=== PATIENT | female | born 1950 | race Caucasian/White ===

== ENCOUNTER → 2016-10-11 | Outpatient (CLI) | payer OTHER | LOC: FIMAGING 09:11 | PROVIDERS: ATTEND Internal Medicine Endocrinology, Diabetes & Metabolism | DX: Z13.820 Encounter for screening for osteoporosis (principal); M85.80 Other specified disorders of bone density and structure, unspecified site; Z78.0 Asymptomatic menopausal state; Z79.890 Hormone replacement therapy | CPT/HCPCS: G0202 ==

== ENCOUNTER → 2016-10-31 | Outpatient (CLI) | payer OTHER | LOC: FIMAGING 15:12 | DX: N60.02 Solitary cyst of left breast (principal) ==

== ENCOUNTER → 2017-03-29 | Outpatient (CLI) | payer OTHER | LOC: BMCIMAGING 10:36 | PROVIDERS: ATTEND Podiatrist Foot & Ankle Surgery | DX: M20.11 Hallux valgus (acquired), right foot (principal); M21.611 Bunion of right foot; M19.071 Primary osteoarthritis, right ankle and foot ==

== ENCOUNTER 2017-07-10 21:34 | Emergency (ER) | payer OTHER ==
[2017-07-10 21:45] VITALS: BP 179/111; PULSE 79; RESP 16; TEMP 97.7; O2SAT 93
--- NOTE | 2017-07-10 22:18 | EDPHY ---
General - History Smoking Status: Former smoker Narrative: CHIEF COMPLAINT: Right knee pain HISTORY OF PRESENT ILLNESS: Patient complains of right knee pain. This happened acutely this evening. She just finished going up her stairs and was walking on a rug. She slipped, striking her right knee on the wall. Sudden onset of severe pain in the knee. Swollen and difficulty ambulating due to this. No numbness or tingling distally. No fall or head strike. No chest, back or abdominal pain. No injury to the left leg. She has no weakness of the right ankle or foot. No bony tenderness of the right ankle or foot. No other associated complaints or modifying factors. ESTABLISHED ORTHOPEDIST: Dr. Gerardo REVIEW OF SYSTEMS: Ten systems reviewed and are negative unless otherwise noted in the HPI PAST MEDICAL HISTORY: Previous left patellar fracture PAST SURGICAL HISTORY: Left patellar ORIF SOCIAL HISTORY: Nonsmoker. FAMILY HISTORY: Noncontributory EXAMINATION General Appearance: Alert, no distress Cardiovascular: Pulses normal throughout. Symmetric DP pulses 2+. Symmetric PT pulses 2+. Brisk cap refill Neurological: A&O, normal light sensation of the top of the right foot. Strength symmetric in the ankles. Patellar reflexes not tested due to deformity and knee. Skin: Warm and dry, no rash. No petechiae. No purpura. No laceration or puncture. There is edema/effusion over the right knee Extremities: Significant tenderness of the right knee over the patella. There is no tenderness of the femoral condyles. No tenderness of the proximal tibia. Range of motion not tested due to deformity prior to the x-ray. Post x-ray examination I did slightly flex the knee and she was able to extend minimally. I did witness the patellar tendon pulling on the tibial tuberosity. Neuro intact distal to this injury. Psychiatric: Mood and affect normal DIFFERENTIAL DIAGNOSES: Including but not limited to patellar fracture, sprain, strain, femur fracture, tibial fracture MDM: 10:05 p.m. Acute right knee pain with blunt trauma this evening with deformity of the knee suggesting patellar fracture. X-ray is pending. She is neuro intact distally. Range of motion not tested prior to the x-ray due to this suspected diagnosis. 10:20 p.m. X-ray reveals a comminuted and significantly distracted patellar fracture. There is no evidence of patellar tendon rupture. There is no abnormality distal to this. She is neuro intact. She is resting comfortably in no acute distress with pain tolerated well. Patient has experience with this with previous left patellar fracture status post ORIF. She would like to contact her previous surgeon for this. She will be placed in a straight leg immobilizer. She has crutches at home. Assisted to the vehicle so that she may remain nonweightbearing. Provide a short course of pain medication for this. I will also provide the on-call orthopedist for her should she change her mind. 10:40 p.m. Patient has straight leg immobilizer in place. She is neuro intact distally. She will be discharged home in stable condition with plan as above. ED Precautions: Worsening pain. Erythema, edema, cyanosis, pallor, paresthesia or anesthesia. (Moise Kerr) PHYSICIAN DOCUMENTATION: The patient was evaluated and managed by the Physician Die Tester. My co- signature indicates that I have reviewed this chart and I agree with the findings and plan of care as documented. I am the secondary supervising physician. (Teagan Monaco) - Diagnostics Imaging Results: Imaging Impressions Knee X-Ray 07/10/17 21:52 Impression: Comminuted displaced patellar fractures. - Objective Vital Signs: Initial Vital Signs Temperature (C) 36.5 C 07/10/17 21:41 Heart Rate 79 07/10/17 21:41 Respiratory Rate 16 07/10/17 21:41 Blood Pressure 179/111 H 07/10/17 21:41 O2 Sat (%) 93 07/10/17 21:41 O2 Delivery Mode Room Air Allergies/Adverse Reactions: codeine [Codeine] Allergy (Verified 07/10/17 21:45) NAUSEA Home Medications: Medication Instructions Recorded Aspirin EC 81 mg (*) 81 mg PO DAILY06 02/26/16 Estradiol 1 mg PO DAILY06 02/26/16 Lisinopril 10 mg PO DAILY06 02/26/16 VITAMIN D PO TUTHSA 02/26/16 medroxyPROGESTERone 5 mg PO DAILY06 02/26/16 Hydrocodone/APAP 5/325 [[place] 1 - 2 tab PO Q4H PRN #19 tab 07/10/17 5/325 (*)] Ondansetron Odt [Zofran Odt 4 mg 4 mg PO Q6 PRN #12 tab 07/10/17 (*)] Medications Given: Discontinued Medications Hydrocodone Bitart/Acetaminophen ([place] 5/325mg Prepack#6) 1 btl HELENA SANTILLANNOGwendolyn ONE Stop: 07/10/17 22:24 Last Admin: 07/10/17 22:44 Dose: 1 btl Departure - Departure Disposition: Home, Routine, Self-Care Clinical Impression: Patellar fracture Condition: Good Instructions: Hydrocodone/Acetaminophen (By mouth), Patellar Fracture (ED) Additional Instructions: 1. Strict nonweightbearing until seen by Orthopedics for definitive care 2. Knee immobilizer as applied here 3. Crutches at home 4. Kuzc-[id number]-[id number] anti-inflammatories as needed 5. Pain medication as prescribed 6. Contact established orthopedist or the orthopedist on-call as provided Referrals: Nathanael Salamanca MD [Primary Care Provider] - As per Instructions Donna Gerardo MD [Medical Doctor] - As per Instructions Evangelista Sloan MD [Medical Doctor] - As per Instructions Prescriptions: Hydrocodone/APAP 5/325 [[place] 5/325 (*)] 1 - 2 tab PO Q4H PRN #19 tab PRN Reason: Pain, Moderate Ondansetron Odt [Zofran Odt 4 mg (*)] 4 mg PO Q6 PRN #12 tab PRN Reason: Nausea/Vomiting, Use 1st
[2017-07-10] MEDS ORDERED: HYDROCOD/APAP 5/325 PREPACK#6 BTL TAKEHOME ONE (22:23)
== END 2017-07-10 23:02 | disposition home or self-care (01) ==
DX: S82.041A Displaced comminuted fracture of right patella, initial encounter for closed fracture (principal); Z87.891 Personal history of nicotine dependence; Z79.82 Long term (current) use of aspirin; W18.40XA Slipping, tripping and stumbling without falling, unspecified, initial encounter; Y93.01 Activity, walking, marching and hiking
CPT/HCPCS: 73564; 99284; L1830

== ENCOUNTER → 2017-11-14 | Outpatient (CLI) | payer OTHER | LOC: FIMAGING 13:31 | PROVIDERS: ATTEND Obstetrics & Gynecology | DX: Z12.31 Encounter for screening mammogram for malignant neoplasm of breast (principal) ==

== ENCOUNTER → 2017-12-06 | Outpatient (CLI) | payer OTHER | LOC: FIMAGING 12:56 | PROVIDERS: ATTEND Obstetrics & Gynecology | DX: N60.01 Solitary cyst of right breast (principal) ==

== ENCOUNTER 2018-09-05 17:30 | Inpatient (IN) | payer OTHER ==
[~2018-09-05 17:30] MED LIST: GADOBUTROL 10 ML VIAL IVP ONE
--- NOTE | 2018-09-05 18:15 | EDPHY ---
H & P Stated Complaint: Sent by PCP for blockage of "left neck artery". Time Seen by Provider: 09/05/18 18:02 HPI/ROS: CHIEF COMPLAINT: CVA HISTORY OF PRESENT ILLNESS: Patient is a 67-year-old female who has been complaining of intermittent headaches for the last week. She states that it began about a week ago when she had a GI bug that several of her family also had. Her symptoms seem to improve but headache again returned on Monday. She notices it particularly when she lays down at night. She feels better when she is upright and during the day. No fever. No focal deficits or weakness appreciated. No slurred speech. No vision changes. She has been able to ambulate without difficulty. She presented to her primary Dr. Nathanael Salamanca today who ordered an MRI and MRA. 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 She was called and told to come to the emergency department. She states that she does not have a headache currently and has no focal weakness or deficits. Severity: Moderate Modifying factors: Somewhat positional REVIEW OF SYSTEMS: Constitutional: denies: chills, fever, recent illness, recent injury EENTM: denies: blurred vision, double vision, nose congestion Respiratory: denies: cough, shortness of breath Cardiac: denies: chest pain, irregular heart rate, lightheadedness, palpitations Gastrointestinal/Abdominal: denies: abdominal pain, diarrhea, nausea, vomiting, blood streaked stools Genitourinary: denies: dysuria, frequency, hematuria, pain Musculoskeletal: denies: joint pain, muscle pain Skin: denies: lesions, rash, jaundice, bruising Neurological: See HPI denies: numbness, paresthesia, tingling, dizziness, weakness Hematologic/Lymphatic: denies: blood clots, easy bleeding, easy bruising Immunologic/allergic: denies: HIV/AIDS, transplant 10 systems reviewed and negative except as noted EXAM: GENERAL: Well-appearing, well-nourished and in no acute distress. HEAD: Atraumatic, normocephalic. EYES: Pupils equal round and reactive to light, extraocular movements intact, sclera anicteric, conjunctiva are normal. ENT: TMs normal, nares patent, oropharynx clear without exudates. Moist mucous membranes. NECK: Normal range of motion, supple without lymphadenopathy or JVD. LUNGS: Breath sounds clear to auscultation bilaterally and equal. No wheezes rales or rhonchi. HEART: Regular rate and rhythm without murmurs, rubs or gallops. ABDOMEN: Soft, nontender, normoactive bowel sounds. No guarding, no rebound. No masses appreciated. BACK: No CVA tenderness, no spinal tenderness, step-offs or deformities EXTREMITIES: Normal range of motion, no pitting or edema. No clubbing or cyanosis. NEUROLOGICAL: Cranial nerves II through XII grossly intact. Normal speech, normal gait. 5/5 strength, normal movement in all extremities, normal sensation , normal reflexes, normal cerebellar exam. PSYCH: Normal mood, normal affect. SKIN: Warm, dry, normal turgor, no visible rashes or lesions. Source: Patient Exam Limitations: No limitations - Personal History Current Tetanus Diphtheria and Acellular Pertussis (TDAP): Yes Tetanus Vaccine Date: 2010 - Medical/Surgical History Hx Asthma: No Hx Chronic Respiratory Disease: No Hx Diabetes: No Hx Cardiac Disease: No Hx Renal Disease: No Hx Cirrhosis: No Hx Alcoholism: No Hx HIV/AIDS: No Hx Splenectomy or Spleen Trauma: No Other PMH: HTN. Osteopenia. - Family History Significant Family History: No pertinent family hx - Social History Smoking Status: Former smoker Alcohol Use: Sober Drug Use: None Constitutional: Initial Vital Signs Temperature (C) 36.3 C 09/05/18 17:43 Heart Rate 84 09/05/18 17:43 Respiratory Rate 16 09/05/18 17:43 Blood Pressure 185/127 H 09/05/18 17:43 O2 Sat (%) 96 09/05/18 17:43 O2 Delivery Mode Room Air Allergies/Adverse Reactions: codeine [Codeine] Allergy (Verified 07/10/17 21:45) NAUSEA Home Medications: Medication Instructions Recorded Lisinopril [Zestril 40 mg (*)] 40 mg PO DAILY 02/26/16 Apixaban [Eliquis] 10 mg PO BID 30 Days tab 09/07/18 Medical Decision Making - Diagnostics EKG Interpretation: An EKG obtained and was read and documented in trace view. Please see trace view for full reading and report. Sinus rhythm, no acute ischemic changes Imaging: Discussed imaging studies w/ manager call center Radiologist ED Course/Re-evaluation: 6:15 p.m. I discussed the case at length with Dr. King from [facility]. He recommends CT angio to evaluate for possible dissection and collateral circulation. He recommends permissive hypertension and admission for neuro checks possibly on heparin bolus if she has a dissection. We will call him back when the CT angio was done. The 8:30 p.m. I had a long discussion about the CT results. Patient agrees to admission. She is currently asymptomatic. No headache. No weakness slurred speech or cranial nerve deficits. Zackary Huang feels that this is likely a stump embolus from the clot. She has good collateral circulation. They recommend heparin drip and labetalol to control blood pressure with a goal blood pressure of 180 systolic. They do not want to go below 120 systolic or over 220 systolic. Differential Diagnosis: Partial list of the Differential diagnosis considered include but were not limited to; CVA, dissection and although unlikely based on the history and physical exam, I also considered ridge, tumor, seizure, infection. - Data Points Laboratory Results: Laboratory Results 09/05/18 18:20 09/05/18 18:20 Medications Given: Discontinued Medications Acetaminophen (Tylenol) 650 mg PO Q4HRS PRN PRN Reason: Pain, Mild/Fever, Can Take PO Stop: 03/04/19 22:04 Last Admin: 09/05/18 22:54 Dose: 650 mg Hydrocodone Bitart/Acetaminophen ([place] 5/325) 1 - 2 tab PO Q4HRS PRN PRN Reason: Pain, Moderate Able to Take PO Stop: 09/15/18 22:04 Last Admin: 09/06/18 04:22 Dose: 1 tab Apixaban (Eliquis) 10 mg PO BID LORENA Stop: 03/06/19 12:14 Last Admin: 09/07/18 12:41 Dose: 10 mg Sodium Chloride (Ns) 1,000 mls @ 0 mls/hr IV ONCE ONE; Wide Open PRN Reason: Protocol Stop: 09/05/18 18:19 Last Admin: 09/05/18 18:24 Dose: 1,000 mls Heparin Sodium (Porcine) (Heparin 50 Units/Ml (Premix)) 500 mls @ 0 mls/hr IV EDNOW ONE; Per Protocol PRN Reason: Protocol Stop: 09/05/18 20:42 Last Admin: 09/05/18 21:06 Dose: 500 mls Heparin Sodium (Porcine) (Heparin 50 Units/Ml (Premix)) 500 mls @ 0 mls/hr IV CONT LORENA; Per Protocol PRN Reason: Protocol Stop: 03/04/19 23:14 Last Admin: 09/06/18 16:21 Dose: 500 mls Labetalol HCl (Trandate Injection) 10 mg IVP EDNOW ONE Stop: 09/05/18 20:19 Last Admin: 09/05/18 20:48 Dose: 10 mg Labetalol HCl (Trandate Injection) 10 mg IVP EDNOW ONE Stop: 09/05/18 21:16 Last Admin: 09/05/18 21:18 Dose: 10 mg Lisinopril (Zestril) 40 mg PO DAILY LORENA Stop: 03/06/19 12:14 Last Admin: 09/07/18 12:41 Dose: 40 mg Departure - Departure Disposition: [facility] Acute Clinical Impression: CVA (cerebral vascular accident) Qualifiers: CVA mechanism: unspecified Qualified Code(s): I63.9 - Cerebral infarction, unspecified Condition: Fair
[2018-09-05] MEDS ORDERED: NS 1,000 ML IV ONE (18:18)
[2018-09-05] MEDS ORDERED: IOPAMIDOL (ISOVUE 370) 100 ML BTL IV ONE (18:24)
[2018-09-05 18:36] LABS: PLATELET COUNT 234 10^3/uL (150-400)
--- NOTE | 2018-09-05 18:38 | PDCONSULT ---
Edger Machine Helper Note: [facility] Note Demographics Consult Type: Phone Only First Name: Arianne Last Name: Kary Date of : 1950 Age: 67 Gender: Female Referring Provider: Dr Doherty Time of initial page (Gardena ): 09/05/2018 18:10 Time of return call (Gardena ): 09/05/2018 18:11 HPI Additional History (Free Text): 67 year old woman with history of stomach flu about 1 week ago . She has had headaches that have been fluctuating over the last one week she was sent for an outpatient MRI and MRA today that demonstrates a left internal carotid artery occlusion and a 13 mm infarct of the left parietal lobe is not have a significant medical history otherwise and is not on anticoagulants for anti thrombotic agents at Baseline. Exam Data Other Imaging: MRI/MRA reports and [facility] Assessment: Left carotid occlusion, etiology not certain. Possible dissection, perhaps from recent vomiting with GI illness. Headache could be from distention of collaterals. Would treat as dissection and treat with heparin (without bolus) to prevent stump emboli Plan Lytic/Intervention: NOT IV or IA candidate Labs: HgbA1c, Lipid Panel Imaging: CTA Head and Neck STAT, Please call me back with results NATHAN if there are signs of occlusion or dissection Medication: anticoagulation with heparin gtt Other: LDL goal less than 70, permissive HTN, telemetry monitoring, I have discussed my recommendations with the referring provider Additional Recommendations: SBP goal > 120 Frequent neurochecks IVF to maintain euvolemia If dissection is found, would recommend anticoagulation for the next three months with repeat CTA to re-eval occlusion for stability or recanalization to guide further treatment (anticoagulation vs aspirin therapy) Disposition: admit Logistics Provider Location: [place] Patient Location: [facility]
--- NOTE | 2018-09-05 18:56 | CPEKG ---
Test Reason : OPEN Blood Pressure : / mmHG Vent. Rate : 061 BPM Atrial Rate : 061 BPM P-R Int : 135 ms QRS Dur : 096 ms QT Int : 441 ms P-R-T Axes : 059 038 013 degrees QTc Int : 445 ms Sinus rhythm Probable left atrial enlargement Confirmed by Rell Doherty ([id number]) on 09/05/2018 6:55:53 PM Referred By: LAURI COLEMAN Confirmed By:Rell Doherty
[2018-09-05 19:46] LABS: INR 1.05 (0.83-1.16); PROTIME(PATIENT) 13.9 SEC (12.0-15.0)
[2018-09-05] MEDS ORDERED: LABETALOL HCL 5 MG/ML 20 ML MDV IVP ONE ×2 (20:18→21:15)
[2018-09-05] MEDS ORDERED: HEPARIN/DEXTROSE 500 ML IV ONE (20:41)
[2018-09-05] MEDS ORDERED: HYDROmorphONE/DILAUDID 1 MG/ML INJ IVP PRN (22:05)
[2018-09-05] MEDS ORDERED: ACETAMINOPHEN 325 MG TAB PO PRN (22:05)
[2018-09-05] MEDS ORDERED: PROMETHAZINE HCL 25 MG/ML INJ IVP PRN (22:05)
[2018-09-05] MEDS ORDERED: ONDANSETRON 4 MG/2 ML VIAL IVP PRN (22:05)
[2018-09-05] MEDS ORDERED: ONDANSETRON DISINTEGRATING 4 MG TAB PO PRN (22:05)
[2018-09-05] MEDS ORDERED: oxyCODONE IR 5 MG TAB PO PRN (22:05)
[2018-09-05] MEDS ORDERED: TEMAZEPAM 15 MG CAP PO PRN (22:05)
[2018-09-05] MEDS ORDERED: niCARdipine/NACL 200 ML IV SCH (22:30)
[2018-09-05] MEDS ORDERED: HEPARIN 10,000 UNIT/10 ML MDV (1,000 UNIT/ML) IVP PRN (23:03)
--- NOTE | 2018-09-05 23:07 | PDGENHP ---
History and Physical - Chief Complaint headache - History of Present Illness Patient is a 67 yo F with limited PMH who presents from her PCPs office with new diagnosis of CVA. Patient had been having headache for the last week following a GI illness. On Monday she felt so poorly that she felt as if she couldn't walk. She notes it was hard to tell if she couldn't walk because of weakness or dizziness, but at any rate, she attributed it to the GI illness and did not seek care. The GI sxs improved, however her headache continued and she ultimately followed up with her PCP for this. PCP ordered MRI/MRA brain for further evaluation and found that she had evidence of a left parietal infarct as well as a completely occluded left internal carotid. She was sent to ER for this. At the time of my evaluation her MORTON has resolved, she denies any numbness , weakness, changes in vision or hearing, changes in speech or thinking. Headache is not currently present. She is tearful and concerned regarding this diagnosis but otherwise feels well. History Information - Allergies/Home Medication List Allergies/Adverse Reactions: codeine [Codeine] Allergy (Verified 07/10/17 21:45) NAUSEA Home Medications: Estradiol [Estradiol 1 MG (*)] 1 mg PO DAILY 02/26/16 [Last Taken 09/05/18] Herbals/Supplements -Info Only 1 ea PO DAILY 02/26/16 [Last Taken 09/05/18] Lisinopril [Zestril 40 mg (*)] 40 mg PO DAILY 02/26/16 [Last Taken 09/05/18] medroxyPROGESTERone ACETATE [Provera 5 mg] 5 mg PO DAILY 02/26/16 [Last Taken ] Ibuprofen [Motrin (*)] 600 mg PO Q6H PRN 09/05/18 [Last Taken 08/31/18] I have personally reviewed and updated: family history, medical history, social history, surgical history - Past Medical History hypertension Additional medical history: osteopenia - Surgical History Additional surgical history: 2 knee surgeries. arm surgery - Family History Positive for: father with history of CAD younger than 55 (3 MO's in his 50s) - Social History Smoking Status: Current some day smoker Alcohol Use: Sober Drug Use: None Additional social history: Review of Systems Review of Systems: ROS: 10pt was reviewed & negative except for what was stated in HPI & below Physical Exam Physical Exam: Temp Pulse Resp BP Pulse Ox 36.3 C 56 L 18 181/90 H 93 09/05/18 17:43 09/05/18 21:22 09/05/18 21:22 09/05/18 21:22 09/05/18 21:22 Constitutional: no apparent distress, appears nourished Eyes: PERRL, anicteric sclera Ears, Nose, Mouth, Throat: moist mucous membranes, hearing normal Cardiovascular: regular rate and rhythym, no murmur, rub, or gallop, No edema Respiratory: no respiratory distress, no rales or rhonchi Gastrointestinal: normoactive bowel sounds, soft, non-tender abdomen Genitourinary: no bladder tenderness Skin: warm, normal color Musculoskeletal: full muscle strength, no muscle tenderness Neurologic: AAOx3, CN II-XII Intact, No weakness, No numbness Psychiatric: interacting appropriately, not anxious, not encephalopathic Lab Data & Imaging Review 09/05/18 18:20 09/05/18 18:20 WBC 8.61 10^3/uL (3.80-9.50) 09/05/18 18:20 RBC 5.10 10^6/uL (4.18-5.33) 09/05/18 18:20 Hgb 16.5 g/dL (12.6-16.3) H 09/05/18 18:20 Hct 47.9 % (38.0-47.0) H 09/05/18 18:20 MCV 93.9 fL (81.5-99.8) 09/05/18 18:20 MCH 32.4 pg (27.9-34.1) 09/05/18 18:20 MCHC 34.4 g/dL (32.4-36.7) 09/05/18 18:20 RDW 13.2 % (11.5-15.2) 09/05/18 18:20 Plt Count 234 10^3/uL (150-400) 09/05/18 18:20 MPV 10.4 fL (8.7-11.7) 09/05/18 18:20 Neut % (Auto) 62.3 % (39.3-74.2) 09/05/18 18:20 Lymph % (Auto) 26.0 % (15.0-45.0) 09/05/18 18:20 [place] % (Auto) 10.1 % (4.5-13.0) 09/05/18 18:20 Eos % (Auto) 0.8 % (0.6-7.6) 09/05/18 18:20 Baso % (Auto) 0.5 % (0.3-1.7) 09/05/18 18:20 Nucleat RBC Rel Count 0.0 % (0.0-0.2) 09/05/18 18:20 Absolute Neuts (auto) 5.36 10^3/uL (1.70-6.50) 09/05/18 18:20 Absolute Lymphs (auto) 2.24 10^3/uL (1.00-3.00) 09/05/18 18:20 Absolute Monos (auto) 0.87 10^3/uL (0.30-0.80) H 09/05/18 18:20 Absolute Eos (auto) 0.07 10^3/uL (0.03-0.40) 09/05/18 18:20 Absolute Basos (auto) 0.04 10^3/uL (0.02-0.10) 09/05/18 18:20 Absolute Nucleated RBC 0.00 10^3/uL (0-0.01) 09/05/18 18:20 Immature Gran % 0.3 % (0.0-1.1) 09/05/18 18:20 Immature Gran # 0.03 10^3/uL (0.00-0.10) 09/05/18 18:20 PT 13.9 SEC (12.0-15.0) 09/05/18 19:08 INR 1.05 (0.83-1.16) 09/05/18 19:08 Sodium 139 mEq/L (135-145) 09/05/18 18:20 Potassium 4.0 mEq/L (3.5-5.2) 09/05/18 18:20 Chloride 107 mEq/L (97-110) 09/05/18 18:20 Carbon Dioxide 22 mEq/l (22-31) 09/05/18 18:20 Anion Gap 10 mEq/L (6-14) 09/05/18 18:20 BUN 16 mg/dL (7-23) 09/05/18 18:20 Creatinine 0.8 mg/dL (0.6-1.0) 09/05/18 18:20 Estimated GFR > 60 09/05/18 18:20 Glucose 112 mg/dL (70-100) H 09/05/18 18:20 Calcium 10.5 mg/dL (8.5-10.4) H 09/05/18 18:20 Visualized and Interpreted imaging results: Yes Interpretation: brain MRI: left parietal infarct and occluded left internal carotid. cta head/neck: totally occluded left ICA, other arteries wnl Visualized and Interpreted EKG results: Yes EKG Interpretation: Positive for: normal sinsus rhythm Assessment & Plan Assessment: CVA (cerebral vascular accident) (Acute) 67 yo F with no significant PMH presenting with new dx of CVA and IC occlusion # ischemic left parietal CVA: subacute likely occurring over the weekend, no real neurologic deficits evident at this time and only presenting sxs was headache. Permissive HTN, lipid panel/a1c in the am, neurology consulted. In the setting of left ICA occlusion as next # left internal carotid occlusion: with all other vessels being widely patent, ? dissection in the setting of recent vomiting, started on heparin gtt, given complete occlusion not surgical candidate, no clear e/o dissection on imaging so length of treatment course with AC tbd per neurology # uncontrolled HTN: will allow permissive htn overnight but would like to bring down to closer to 180 systolic, was 220 in the ER. Started on cardene gtt, goal sbp 180 overnight with tighter control over coming 24 hours # headache: improved, ? if due to distension of collaterals given above, prn pain medication as needed # hyperglycemia: likely stress response but A1c pending # IP status, high risk with new CVA and uncontrolled htn, admit to SDU for cardene drip Patient new to my care. Old records reviewed and summarized as above. Care plan reviewed with ER doctor as above.
[2018-09-05] MEDS ORDERED: HEPARIN/DEXTROSE 500 ML IV SCH (23:15)
[2018-09-06] MEDS: HYDROCODONE/APAP 5/325 TAB PO PRN ×2 (02:21→04:22)
[2018-09-06 04:32] LABS: PLATELET COUNT 159 10^3/uL (150-400)
--- NOTE | 2018-09-06 09:19 | PDMN ---
Medical Necessity Medical necessity: [facility] [place] M83 Ischemic Stroke, 2 days: 67 yo w/ acute ischemic L parietal CVA and L internal carotid occlusion. IP only.
--- NOTE | 2018-09-06 10:04 | NEUROPROG ---
Assessment: [id number] - Neurology Consult: - CC: Dr. Dalton Rivas consulted for stroke. - HPI: 09/06/18: Pt had a GI illness 7 days prior do admission followed by a headache. She saw her PCM on 09/05/18 who ordered a brain MRI which showed a left parietal cortical stroke. Pt not on statin or aspirin on 09/05/18. Pt presented to [facility] ER where head CT showed no bleed but head/neck CTA showed left ICA occlusion. Pt with no focal neuro deficits. Teleneurology did not recommended TPA but did recommend 3 months of anticoagulation as he felt the patient likely had a carotid dissection (possibly from vomiting from GI illness 1 week prior). He also recommended that in 3 months pt get repeat head/neck CTA for consideration of changing anticoagulation to aspirin 81 mg qd lifelong. Neurologic exam on was normal. - PMHx: HTN, osteopenia, knee surgery x 2, arm surgery - SHx: +tobacco FHx: CAD - ROS: Pt denied acute fever, total vision loss, active severe chest pain, respiratory failure, total body severe rash, total bowel/bladder incontinence, psychosis, active seizures, or active bleeding - O: VS reviewed General: Alert Eyes: Fundoscopic exam not able to visualize optic disks CV: Heart RRR, no murmur, no carotid bruit Lungs: Clear to auscultation bilaterally, no rhonchi or rales Neuro: - Mental: . Oriented x person/place/date . concentration appears normal . speech fluency/comprehension normal . memory appears normal . fund of knowledge appear intact - Cranial Nerves: . II: PERRL, VFFTC . III/IV/: EOMI, no nystagmus, normal smooth pursuits, no Ptosis . V: facial sensation intact to LT . VII: face symmetric to eye closure and smile . VIII: hearing intact to conversation . IX/X: uvula raises symmetrically . XI: SCM 5/5 B/L strength . XII: tongue protrudes midline w/nl strength - Motor: . Tone: normal tone in all 4 extremity . 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 Will treat as dissection (3 month of anticoagulation per Teleneurology then reassess with head/neck CTA and consider changing to lifelong aspirin 81 mg qd). Will also get LINQ to check for pAfib. - Plan: - TTE - 24 hour telemetry, if no afib seen then recommend cardiology consult for LINQ monitor for prolonged cardiac monitoring for paroxysmal afib at hospital discharge - Change heparin drip to oral anticoagulation and discharge on this - Blood pressure < 180/110 x 48 hours then < 140/90 (this level was chosen to allow some permissive HTN but not full permissive HTN given bleed risk on anticoagulation) - H1AC < 7.0 (pending) - LDL < 70 (65) - PT/OT/Speech to determine any rehab needs - Smoking cessation recommended to lower stroke risk - Recommend stopping hormone replacement therapy at this time due to stroke risk - F/U in neurology clinic 4-6 weeks Objective: Vital Signs Temp Pulse Resp BP Pulse Ox 36.7 C 49 L 12 165/95 H 95 09/06/18 07:44 09/06/18 07:44 09/06/18 07:44 09/06/18 07:44 09/06/18 07:44 Laboratory Results 09/06/18 04:15 09/06/18 05:50 09/05/18 09/06/18 09/07/18 05:59 05:59 05:59 Intake Total 1523 Balance 1523 PT 13.9 SEC (12.0-15.0) 09/05/18 19:08 INR 1.05 (0.83-1.16) 01/23/19 19:08 Allergies/Adverse Reactions: codeine [Codeine] Allergy (Verified 07/10/17 21:45) NAUSEA
--- NOTE | 2018-09-06 11:39 | ECHO ---
[email or web address] [address] [address] Main: [phone] Fax: Transthoracic Echocardiogram Name: ARMAND MENDEZ MR#: [id number] Study Date: 09/06/2018 Study Time: 07:58 AM Date of : 1950 Age: 67 year(s) Height: 175.3 cm (69 in.) Weight: 70.31 kg (155 lb.) BSA: 1.85 m2 Gender: Female Examination: Echo Indication: Ischemic stroke, (Occluded left ICA), HTN Image Quality: Technically Difficult Contrast: Requested by: Dalton Rivas BP: 165 mmHg/95 mmHg Heart Rate: Rhythm: Indication: Ischemic stroke, (Occluded left ICA), HTN Procedure Staff Web Knitter: Anny Spence RDCS Reading Physician: Bryant Davison MD Requesting Provider: Conclusions: Normal size left ventricle. Normal global systolic LV function. The ejection fraction is estimated to be 70-75 %. An agitated saline study was performed. It was inconclusive due to pt's technically difficult imaging windows.. The mitral valve is normal in appearance and function. Mild mitral valve regurgitation is present. The aortic valve is tri-leaflet. No aortic valve stenosis is present. There is no aortic valve regurgitation. No source of emboli identified with in the confines of TTE. Consider MAHI if clinically indicated. Measurements: Chambers Valvular Assessment AV/MV Valvular Assessment TV/PV Normal Normal Normal Name Value Range Name Value Range Name Value Range Ao Daniella (MM): 3.4 cm (2.2 cm-3.7 AV Vmax: 1.39 m/s (1 m/s-1.7 cm) m/s) IVSd (2D): 0.7 cm (0.6 cm-1.1 AV meanP mmHg ( - ) cm) MV E Vmax: 0.87 m/s ( - ) LVDd (2D): 4.9 cm (3.9 cm-5.3 MV A Vmax: 0.68 m/s ( - ) cm) MV E/A: 1.28 ( - ) LVDs (2D): 3.0 cm (2.1 cm-4 cm) LVPWd (2D): 1.0 cm ( - ) LVEF (2D): 69 (>=54 %) EF Range: 70-75 % Continued Measurements: Chambers Valvular Assessment AV/MV Patient: ARMAND MENDEZ Study Date: 09/06/2018 Page 1 of 2 07:58 AM Name Value Name Value LADs: 3.4 cm MV E' Septal: 0.07 m/s LADs Lon.0 cm MV E/E' Septal: 12.00 LA Area: 15.3 cm2 LA Volume: 39 ml LA Volume Index: 21.1 ml/m2 Additional Vessels Name Value Ao Ascendin.4 cm Findings: Left Ventricle: Normal size left ventricle. No LV hypertrophy. Normal global systolic LV function. The ejection fraction is estimated to be 70-75 %. No regional wall motion abnormality. Normal diastolic LV function. Right Ventricle: Normal size right ventricle. There is a moderator band noted in the right ventricle. Left Atrium: The left atrium is normal in size. An agitated saline study was performed. It was inconclusive due to pt's technically difficult imaging windows.. Right Atrium: The right atrium is normal in size. Mitral Valve: The mitral valve is normal in appearance and function. Mild mitral valve regurgitation is present. Aortic Valve: The aortic valve is tri-leaflet. No aortic valve stenosis is present. There is no aortic valve regurgitation. Tricuspid Valve: The tricuspid valve is normal in appearance and function. Pulmonic Valve: The pulmonic valve is normal in appearance and function. Trivial pulmonic valve regurgitation. Aorta: The aorta is normal. Pericardium: No pericardial effusion. (No Signature Object) Patient: ARMAND MENDEZ Study Date: 09/06/2018 Page 2 of 2 07:58 AM [id number]
--- NOTE | 2018-09-06 12:57 | HOSPPROG ---
Hospitalist Progress Note Assessment/Plan: 67 yo F with no significant PMH presenting with new dx of CVA and IC occlusion # ischemic left parietal CVA: subacute likely occurring over the weekend, no real neurologic deficits evident at this time and only presenting sxs was headache. -Permissive HTN through tomorrow per Neuro's note -LDL less than 70, currently 65 -A1C less than 7, pending -Heparin -can transition to oral tomorrow per discussion with Neuro # left internal carotid occlusion: -Per Neuro, felt not to be a surgical candidate, medical mgmt is indicated. reconfirmed today -AC x 3 months -unclear if dissection, no clear e/o dissection on imaging # uncontrolled HTN -permissive HTN today -BP mgmt tomorrow -Stop Cardene drip # headache: improved, ? if due to distension of collaterals given above, prn pain medication as needed -none reported today # hyperglycemia: likely stress response but A1c pending Dispo: ok to go to med floor likely dc tomorrow pt/ot evals pending Subjective: no cp or sob. no new deficits. no ariza Objective: Vital Signs Temp Pulse Resp BP Pulse Ox 36.6 C 48 L 16 174/76 H 94 09/06/18 12:00 09/06/18 12:00 09/06/18 12:00 09/06/18 12:00 09/06/18 12:00 Laboratory Results 09/06/18 04:15 09/06/18 05:50 09/05/18 09/06/18 09/07/18 05:59 05:59 05:59 Intake Total 1523 Balance 1523 PT 13.9 SEC (12.0-15.0) 09/05/18 19:08 INR 1.05 (0.83-1.16) 09/05/18 19:08 - Physical Exam Constitutional: no apparent distress Eyes: PERRL Ears, Nose, Mouth, Throat: moist mucous membranes Cardiovascular: regular rate and rhythym, No JVD Respiratory: no respiratory distress, no rales or rhonchi, clear to auscultation Gastrointestinal: normoactive bowel sounds Skin: warm Neurologic: AAOx3 Psychiatric: interacting appropriately, not anxious, not encephalopathic Lymph, Heme, Immunologic: No petechiae ICD10 Worksheet Patient Problems: Problems Problem Status Onset CVA (cerebral vascular accident) Acute
[2018-09-06] MEDS ORDERED: hydrALAZINE 20 MG/ML VIAL IVP PRN (13:01)
--- NOTE | 2018-09-07 09:09 | NEUROPROG ---
Assessment: [id number] - Neurology Consult: - CC: F/U for stroke - Narrative Summary: 09/06/18: Pt had a GI illness 7 days prior do admission followed by a headache. She saw her PCM on 09/05/18 who ordered a brain MRI which showed a left parietal cortical stroke. Pt not on statin or aspirin on 09/05/18. Pt presented to [facility] ER where head CT showed no bleed but head/neck CTA showed left ICA occlusion. Pt with no focal neuro deficits. Teleneurology did not recommended TPA but did recommend 3 months of anticoagulation as he felt the patient likely had a carotid dissection (possibly from vomiting from GI illness 1 week prior). He also recommended that in 3 months pt get repeat head/neck CTA for consideration of changing anticoagulation to aspirin 81 mg qd lifelong. Neurologic exam on was normal. - HPI: F/U 09/07/18. TTE unremarkable for stroke cause. Pt stable. - PMHx: HTN, osteopenia, knee surgery x 2, arm surgery - SHx: +tobacco FHx: CAD - ROS: Pt denied acute fever, total vision loss, active severe chest pain, respiratory failure, total body severe rash, total bowel/bladder incontinence, psychosis, active seizures, or active bleeding - Labs: 09/06/18- LDL 65L, H1AC 5.5 - Rads: 09/05/18- Brain MRI wo: Late acute/subacute 13-mm cortical infarct left parietal lobe 09/05/18- CTA head/neck: Age-indeterminate occlusion of the left internal carotid artery from its origin to the skull base, with reconstitution of flow intracranially via the [place] - Assessment: 1. 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 Will treat as dissection (3 month of anticoagulation per Teleneurology then reassess with head/neck CTA and consider changing to lifelong aspirin 81 mg qd). Will also get LINQ to check for pAfib. - Plan: - recommend cardiology consult for LINQ monitor for prolonged cardiac monitoring for paroxysmal afib at hospital discharge - Change heparin drip to oral anticoagulation and discharge on it for stroke prevention - Blood pressure < 140/90 - H1AC < 7.0 (5.5) - LDL < 70 (65) - PT/OT/Speech to determine any rehab needs - Smoking cessation recommended to lower stroke risk - Recommend stopping hormone replacement therapy at this time due to stroke risk - F/U in neurology clinic 4-6 weeks - No further neurologic w/u needed, neurology will sign off - 35 min spent with patient, majority of time spent counseling on treatment plan for stroke Objective: Vital Signs Temp Pulse Resp BP Pulse Ox 36.6 C 62 16 158/84 H 98 09/06/18 16:00 09/07/18 06:00 09/07/18 06:00 09/07/18 06:00 09/07/18 06:00 Laboratory Results 09/07/18 05:42 09/06/18 05:50 09/06/18 09/07/18 09/08/18 05:59 05:59 05:59 Intake Total 1523 2345 Balance 1523 2345 PT 13.9 SEC (12.0-15.0) 09/05/18 19:08 INR 1.05 (0.83-1.16) 09/05/18 19:08 Allergies/Adverse Reactions: codeine [Codeine] Allergy (Verified 07/10/17 21:45) NAUSEA
--- NOTE | 2018-09-07 10:00 | ASMTCASEMG ---
Living Arrangements What is your living Answers: With Spouse arrangement? Who do you live with? Type Of Residence What kind of residence do Answers: House you live in? Discharge Plan Comments Coordination Status Comments Notes: Patient is a 67yo female with a new dx of CVA and IC occlusion. No therapies ordered at this time. D/C plan TBD. CM will follow. Date Signed: 09/07/2018 09:59 AM Electronically Signed By:Rosangela Daniel LCSW
--- NOTE | 2018-09-07 12:11 | PDDCSUM ---
Discharge Summary Discharge Summary: 67 yo F with hx of HTN admitted with new dx of CVA and IC occlusion. Please see below for details. She is being discharged on Eliquis which she will need for 3 months. She will continue her Lisinopril 40mg daily, this is a home medication [facility] will contact the patient to set up a Holter monitor She will f/u with Neurology in 1-3 weeks DDX: # Left Parietal subacute stroke from left ICA occlusion: subacute likely occurring over the weekend, no real neurologic deficits evident at this time and only presenting sxs was headache. -Permissive HTN through tomorrow per Neuro 's note -LDL less than 70, currently 65 -A1C less than 7, currently 5.5 -Eliquis per above -Will also get LINQ to check for pAfib # left internal carotid occlusion: -Per Neuro, felt not to be a surgical candidate, medical mgmt is indicated. reconfirmed today -AC x 3 months -unclear if dissection, no clear e/o dissection on imaging # uncontrolled HTN -permissive HTN initially. -treated with a Cardene drip initially -now restarting Lisinopril 40mg daily, which is her home medication # headache: resolved Exam: NAD AAOX3 RRR CTA B S/NT/ND MEDS: SEE MED REC TOTAL TIME SPENT ON D/C IS 35 MINS
[2018-09-07] MEDS ORDERED: LISINOPRIL 40 MG TAB PO SCH (12:15)
[2018-09-07] MEDS ORDERED: APIXABAN 5 MG TAB PO SCH (12:15)
[2018-09-07] MEDS ORDERED: LISINOPRIL 10 MG TAB PO SCH (12:15)
[2018-09-07 12:49] VITALS: BP 156/75
== END 2018-09-07 12:30 | disposition home or self-care (01) | DRG 66 ==
LOC: EDSTATUS 17:30 → OBSVTOIN 20:23 → F2N 22:20
PROVIDERS: ADMIT Internal Medicine; ATTEND Internal Medicine
DX: I63.232 Cerebral infarction due to unspecified occlusion or stenosis of left carotid arteries (principal); E86.9 Volume depletion, unspecified; I10 Essential (primary) hypertension; Z87.891 Personal history of nicotine dependence; R29.700 NIHSS score 0
CPT/HCPCS: 85520-90; 92523-GN; 96374; 97161-GP; 97166-GO; A9585; J1644; Q9967

== ENCOUNTER 2018-10-01 09:18 | Day surgery (SDC) | payer OTHER ==
[2018-10-01] MEDS ORDERED: LIDOCAINE 1% 300 MG/30 ML SDV SC ONE (09:23)
--- NOTE | 2018-10-01 10:36 | PDCARPN ---
Cardiology Progress Note Assessment/Plan: Assessment: -Hypertensive Urgency -Hx of CVA Plan: -D/C Plan for LINQ today in the setting of Hypertensive Urgency -Give Amlodipine 5 mg PO x one now -Monitor Pt until Systolic BP below 170 -Will provide new Rx for Amlodipine 10 mg daily -Continue Lisinopril 40 mg daily -Will contact her PCP Dr. Nathanael Salamanca to discuss BP -Continue Eliquis 5 mg bid 10/01/18 10:36 Subjective: Pt presents for implantable loop recorder in the setting of recent 13 mm infarct of left parietal lobe with completey occluded Left carotid artery thought to be secondary to dissection in setting of recent GI illness wiht vomiting vs. PAF. No prior hx of Afib. She presents today with BP of 224/124. She did take her Lisinopril 40 mg and Amlodipine 2.5 mg (started last mon, Sep). She remains on Eliquis 5 mg bid. Objective: Intake/Output (24 Hrs) 09/30/18 10/01/18 10/02/18 05:59 05:59 05:59 Other: Weight 72.6 kg - Physical Exam Constitutional: no apparent distress Cardiovascular: regular rate and rhythm, no murmurs, no rubs, no gallops Respiratory: clear to auscultate bilat Neurologic: AAOx3, CN II-XII grossly intact Psychiatric: cooperative, interactive, following commands ICD10 Worksheet Patient Problems: Problems Problem Status Onset CVA (cerebral vascular accident) Acute
[2018-10-01] MEDS ORDERED: amLODIPine BESYLATE 5 MG TAB PO ONE (10:45)
[2018-10-01 11:09] VITALS: BP 210/117
[2018-10-01] MEDS ORDERED: hydrALAZINE 20 MG/ML VIAL IVP ONE (11:15)
[2018-10-01] MEDS ORDERED: ACETAMINOPHEN 325 MG TAB PO ONE (12:00)
== END 2018-10-01 13:10 | disposition home or self-care (01) ==
LOC: FCATH 09:18
PROVIDERS: ATTEND Internal Medicine Cardiovascular Disease
DX: Z53.09 Procedure and treatment not carried out because of other contraindication (principal); I10 Essential (primary) hypertension; Z86.73 Personal history of transient ischemic attack (TIA), and cerebral infarction without residual deficits
CPT/HCPCS: J0360

== ENCOUNTER 2018-10-05 09:37 | Day surgery (SDC) | payer OTHER ==
[2018-10-05] MEDS ORDERED: LIDOCAINE 1% 300 MG/30 ML SDV SC ONE (09:42)
--- NOTE | 2018-10-05 11:44 | PDHPUP ---
History & Physical Update H&P update statement: This history and physical update is based on an assessment of the patient which was completed after admission or registration (within 24 hours), but prior to the surgery/procedure. H&P update: H&P reviewed & patient examined, no change in patient's condition since H&P completed
--- NOTE | 2018-10-05 12:28 | CPIP ---
[f rep st] INVASIVE CARDIAC PROCEDURE DATE OF PROCEDURE: 10/05/2018 PROCEDURE PERFORMED: Medtronic implantable loop recorder. INDICATION FOR PROCEDURE: Patient with recent history of CVA of unclear etiology. Plan for implanta ble loop recorder to assess for possible underlying paroxysmal atrial fibrillation. PROCEDURE: After informed consent was obtained, the patient was brought to the [facility] procedure room. She was prepped and draped in sterile fashion. The 5th intercostal space 2 cm from midline was marke d. The patient was anesthetized with 1% lidocaine. Once appropriate level of anesthesia locally was obtained, incision was made with scalpel blade provided in Medtronic tool kit modified by a 5 blade scalpel. Using the Medtronic tool, a channel was made under the skin approximately 2 mm. Device was implanted without difficulty. Hemostasis was achieved. Steri-Strips were applied. At the time of the dictation, the device is being interrogated. She tolerated the procedure well. PLAN: 1. Patient will be seen in the office next week for a device and wound check. 2. Patient will follow up with me in the office in approximately 2-3 months. 3. Blood pressure will be managed by her primary care physician, Dr. Nathanael Salamanca. 4. She will also follow up with her neurologist, Dr. Ribeiro. /[id number]/MODL
== END 2018-10-05 12:24 | disposition home or self-care (01) ==
LOC: FCATH 09:37
PROVIDERS: ATTEND Internal Medicine Cardiovascular Disease
PROC: 0JH602Z Insertion of Monitoring Device into Chest Subcutaneous Tissue and Fascia, Open Approach (ICD-10-PCS; principal; 2018-10-05)
DX: Z86.73 Personal history of transient ischemic attack (TIA), and cerebral infarction without residual deficits (principal); R51 Headache; I65.22 Occlusion and stenosis of left carotid artery; I10 Essential (primary) hypertension; Z79.01 Long term (current) use of anticoagulants; Z87.891 Personal history of nicotine dependence
CPT/HCPCS: C1764

== ENCOUNTER → 2018-10-15 | Outpatient (CLI) | payer OTHER | LOC: FIMAGING 10:17 | PROVIDERS: ATTEND Internal Medicine Endocrinology, Diabetes & Metabolism | DX: Z13.820 Encounter for screening for osteoporosis (principal); M85.89 Other specified disorders of bone density and structure, multiple sites; E03.9 Hypothyroidism, unspecified; Z78.0 Asymptomatic menopausal state ==

== ENCOUNTER → 2018-12-13 | Outpatient (CLI) | payer OTHER ==
[~2018-12-13] MED LIST changes: -GADOBUTROL 10 ML VIAL IVP ONE; +IOPAMIDOL (ISOVUE 370) 100 ML BTL IV ONE
== END ==
LOC: FIMAGING 11:02
PROVIDERS: ATTEND Psychiatry & Neurology Neurology
DX: Z12.31 Encounter for screening mammogram for malignant neoplasm of breast (principal); I65.22 Occlusion and stenosis of left carotid artery
CPT/HCPCS: 70496; 70498; Q9967; 82565-PO

== ENCOUNTER → 2018-12-24 | Outpatient (CLI) | payer OTHER | LOC: FIMAGING 16:04 | PROVIDERS: ATTEND Psychiatry & Neurology Neurology | DX: M79.89 Other specified soft tissue disorders (principal) ==

== ENCOUNTER → 2019-01-03 | Outpatient (CLI) | payer OTHER | LOC: FIMAGING 13:14 | PROVIDERS: ATTEND Obstetrics & Gynecology | DX: R92.8 Other abnormal and inconclusive findings on diagnostic imaging of breast (principal) ==